=== PATIENT | male | born 1980 | race Caucasian/White ===

== ENCOUNTER 2024-06-24 00:50 | Emergency (ER) | payer MEDICAID, SELFPAY ==
[2024-06-24 00:51] VITALS: BMI 34.0
[2024-06-24 01:01] VITALS: BP 146/96; PULSE 117; RESP 19; TEMP 36.4; O2SAT 98; BMI 27.3
--- NOTE | 2024-06-24 01:11 | XR_ITS ---
Examination: Hand, left 3 views Technique: Hand AP, oblique, lateral 3 views Date and time of exam: June 24, 2024 0033 hours INDICATIONS: Patient fell today with injury to the hand, hand pain FINDINGS: Dislocation at the first metacarpophalangeal joint No cortical bone destruction No foreign body IMPRESSION: Dislocation at the first metacarpophalangeal joint
--- NOTE | 2024-06-24 01:11 | EDNOTE_ITS ---
Upper Extremity Injury RME/HPI General Chief Complaint: Extremity Injury, Upper Stated Complaint: POSSIBLE FRACTURE ON LT HAND Time Seen by Provider: 06/24/24 00:57 Source: patient, RN notes reviewed and old records reviewed Arrival date/time: 06/24/24 00:50 Mode of arrival: ambulatory Limitations: no limitations RME / HPI RME / HPI narrative: 43yof presents to ED for hand pain, I think my thumb is dislocated. Patient states he fell out of his bed and woke up due to left hand pain. +deformity. No other symptoms reported. 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 Previous Rx's ?Medication ?Instructions ?Recorded ibuprofen 600 mg tablet 600 mg PO Q6H PRN pain #20 t abs 06/24/24 Allergies Allergy/AdvReac Type Severity Reaction Status Date / Time No Known Allergies Allergy Verified 06/24/24 00:53 Review of Systems Review of Systems Systems Reviewed: All systems reviewed, normal except as documented Musculoskeletal Musculoskeletal: Reports arthralgias, Reports deformity, Reports joint swelling, Reports limited range of motion, Denies numbness and Denies tingling Neurologic Neurologic: Denies numbness and Denies tingling ED Exam General Limitations: Present no limitations General appearance: Present alert and in no apparent distress Head Head exam: Present atraumatic and normocephalic Eye Eye exam: Present normal appearance, PERRL and EOMI ENT ENT exam: Present normal exam and mucous membranes moist Neck Neck exam: Present normal inspection and full ROM Chest Chest inspection: Present normal inspection and symmetric chest wall rise Respiratory Respiratory exam: Present normal lung sounds bilaterally; Absent respiratory distress Cardiovascular Cardiovascular exam: Present regular rate and normal rhythm Extremities Exam Extremities exam: Present other (Obvious deformity at base of left thumb. Limited ROM 2/2 dislocation and pain. <2s cap refill, sensation intact) Neurological Exam Neurological exam: Present alert and oriented X3 Psychiatric Psychiatric exam: Present normal affect and normal mood Skin Skin exam: Present warm, dry, intact and normal color Course Quality Measures none Orders Category Date Time Status XR hand comp LT min 3V Stat Exams 06/24/24 01:11 Completed HYDROcodone*/APAP 7.5/325 [[place] 7.5/325] Med 06/24/24 01:11 Discontinued 1 tab PO X1 ONE Ibuprofen Tab [Motrin Tab] Med 06/24/24 01:11 Discontinued 800 mg PO X1 ONE Vital Signs Vital signs: Vital Signs Temperature 97.5 F 06/24/24 01:01 Pulse Rate 117 H 06/24/24 01:01 Respiratory Rate 19 06/24/24 01:01 Blood Pressure 146/96 H 06/24/24 01:01 Pulse Oximetry (%) 98 06/24/24 01:01 Oxygen Delivery Method Room Air 06/24/24 01:01 Procedures -ED Nerve Block Nerve Block 1: Local Anesthetic: lidocaine 1% Amount of anesthesia used (mL): 8 Side: left (thumb) Nerve Blocks: digital Procedure Successful: Yes Patient Tolerated Procedure: well and no complications Complications: none Orthopedic Joint Reduction Joint #1: Side: Left Joint Reduction Location: finger (left thumb) Analgesia: other (digital ring block ) Local Anesthesia: lidocaine 1% Amount of anesthesic used (mL): 8 Technique used: direct manipulation Post-reduction neuro exam: intact Post-reduction vascular: intact Post Reduction X-Ray Obtained: No Post Reduction X-Ray Results: reduced Splint Applied: Yes Patient Tolerated Procedure: well and no complications Splint Fabrication: Pre-Fabricated Type: Finger Protector Reason for Splint: Improve Function, Optimal Positioning, Pain Management, Prevent Deformities and Support Joint/Muscle Circulation Distal to Splint: Yes Movement Distal to Splint: Yes Senation Distal to Splint: Yes Tolerance: Tolerates Well Extremity Injury MDM Narrative MDM Narrative:: 43yof presents to ED for hand pain, I think my thumb is dislocated. Patient states he fell out of his bed and woke up due to left hand pain. +deformity. No other symptoms reported. 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 Patient is neurovascularly intact. Encouraged RICE therapy, Motrin/Tylenol prn pain. Ortho follow up as needed. Stable for dc, RTED precautions given. Patient data External records reviewed:: None (No prior visits) Clinical information provided by:: patient Social determinants that could affect healthcare access:: none Patient has the following chronic illnesses:: Epilepsy, obesity How is presenting disease/condition affected by chronic disease/condition?: uneffected by Evaluation data The following diagnostics were reviewed and interpreted by me:: radiology exam(s) Lab and/or radiology exams considered but not ordered:: Hand x-rays s/p reduction:, Patient now with FROM left thumb Interpretation Summary: Hand x-rays: Thumb dislocation per my read Medications / Prescriptions Medications or Prescriptions considered but not ordered:: None Medication administrations:: Medication Administration History Discontinued Medications Hydrocodone Bitart/Acetaminophen (Hydrocodone/[place] 7.5/325 Tablet) 1 tab PO X1 ONE Stop: 06/24/24 01:12 Last Admin: 06/24/24 01:20 Dose: 1 tab Documented By: YOHANNES Ibuprofen (Ibuprofen Tab 400 Mg Tablet) 800 mg PO X1 ONE Stop: 06/24/24 01:12 Last Admin: 06/24/24 01:21 Dose: 800 mg Documented By: YOHANNES Above medications administered in ED Consultations Consultation(s) initiated? (list below): No Diagnosis Upper Extremity Injury Differential Diagnosis: other (Fracture, dislocation, sprain, strain, contusion, MSK pain) Most likely diagnosis given after review of the tests above:: Thumb dislocation Admission Indicated Admission indicated?: not indicated Admission Request Was there a request for admission?: No Disposition Plan Disposition Plan: Discharge Discharge Attestation Discharge Attestation: The patient and all family members were given an opportunity to ask questions and understood the discharge instructions. Discharge instructions specifically effects, indications for sooner follow up or return to the emergency department, and the expected course of current diagnosis. 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
[2024-06-24] MEDS: HYDROcodone/APAP 7.5/325 TABLET 1 TAB PO (01:20)
[2024-06-24] MEDS: IBUPROFEN TAB 400 MG TABLET 800 MG PO (01:21)
== END 2024-06-24 14:25 | disposition home or self-care (01) ==
PROVIDERS: Emergency Provider Emergency Medicine
DX: S63.105A Unspecified dislocation of left thumb, initial encounter (principal); W06.XXXA Fall from bed, initial encounter
CPT/HCPCS: 26705; 73130; 99283; A9270